=== PATIENT | male | born 1960 | race Caucasian/White ===

== ENCOUNTER 2023-10-22 08:32 | Emergency (ER) | payer OTHER ==
[2023-10-22 09:01] LABS: Absolute Eosinophils 0.1 K/uL (0-0.5); Absolute Lymphocytes (CBC) 1.6 K/uL (0.7-4.9); Absolute Monocytes 0.8 K/uL (0.1-1.3); Absolute Neutrophil 6.9 K/uL (1.8-8.0); Basophils % 0.3 % (0-1.3); Eosinophils % 0.9 % (0-4.4); Hematocrit 43.8 % (39.6-49.0); Hemoglobin 14.4 g/dL (13.6-17.9); MCH 29.3 pg (27.0-35.0); MCV 88.8 fL (80-100); MPV 9.3 fL (7.6-11.3); Monocytes % 8.4 % (3.3-12.3); Neutrophils % 73.4 % (41.7-73.7); Platelets 182 thou/uL (152-406); RBC Red Blood Cell Count 4.93 M/uL (4.33-5.43); Red Cell Distribution Width 14.5 % (12.1-15.2)
[2023-10-22 09:05] LABS: PT Prothrombin Time 37.9 SECONDS (9.5-12.5); Protime INR 3.58
--- NOTE | 2023-10-22 09:08 | RAD REPORT ---
EXAM DESCRIPTION: RAD - Chest Single View - 10/22/2023 9:00 am CLINICAL HISTORY: syncope Chest pain. COMPARISON: CHEST SINGLE VIEW dated 02/05/2008; CHEST SINGLE VIEW dated 01/05/2008; CHEST PA AND LAT 2 V IEW dated 03/19/2006 FINDINGS: Portable technique limits examination quality. The lungs are grossly clear. The heart is normal in size. No displaced fractures.Sternotomy wires. IMPRESSION: No acute intrathoracic process suspected.
[2023-10-22 09:17] LABS: Albumin 3.7 g/dL (3.4-5.0); Anion Gap 8.2 mEq/L (5.0-15.0); Bilirubin Direct 0.2 mg/dL (0-0.2); Bilirubin Indirect, Calculated 0.2 mg/dL (0.2-0.8); Bilirubin Total 0.4 mg/dL (0.2-1.0); Globulin 3.6 g/dL (2.3-3.5); Potassium 4.2 mEq/L (3.5-5.1); Protein, Total 7.3 g/dL (6.4-8.2); Troponin High Sensitivity 8.1 pg/mL (<58.9)
--- NOTE | 2023-10-22 09:42 | RAD REPORT ---
EXAM DESCRIPTION: CT - Head Brain Wo Cont - 10/22/2023 9:24 am CLINICAL HISTORY: SYNCOPE Headache, drowsiness, syncope COMPARISON: CT-STROKE BRAIN W/O CONTRAST dated 11/21/2014 TECHNIQUE: All CT scans are performed using dose optimization technique as appropriate and may inclu de automated exposure control or mA/KV adjustment according to patient size. FINDINGS: No intracranial hemorrhage, hydrocephalus or extra-axial fluid collection.No areas of brai n edema or evidence of midline shift. The paranasal sinuses and mastoids are clear. The calvarium is intact. IMPRESSION: No acute intracranial abnormality.
--- NOTE | 2023-10-22 09:56 | ER ---
Nurse's Notes [facility] Name: Tee Michael Age: 63 yrs Sex: Male : 1960 Arrival Date: 10/22/2023 Time: 08:32 Bed 17 Private MD: Diagnosis: Near syncope Presentation: 10/21 08:52 Chief complaint: EMS states: pt wasat work , was walking and got light headed, dizzy, iw had to sit himself down, symptoms have resolved, hx of valve replacement and htn. Coronavirus screen: At this time, the client does not indicate any symptoms associated with coronavirus-19. Ebola Screen: Patient negative for fever greater than or equal to 101.5 degrees Fahrenheit, and additional compatible Ebola Virus Disease symptoms Patient denies exposure to infectious person. Patient denies travel to an Ebola-affected area in the 21 days before illness onset. No symptoms or risks identified at this time. Initial Sepsis Screen: Does the patient meet any 2 criteria? No. Patient's initial sepsis screen is negative. Does the patient have a suspected source of infection? No. Patient's initial sepsis screen is negative. Risk Assessment: Do you want to hurt yourself or someone else? Patient reports no desire to harm self or others. Onset of symptoms was October 22, 2023. 08:52 Acuity: DAT 3 iw 08:52 Method Of Arrival: EMS: [facility] iw Historical: - Allergies: 08:55 NKDA; iw - Home Meds: 08:57 atorvastatin 10 mg Oral tab 1 tab once daily [Active]; Coumadin 10 mg Oral tab 1 tab iw once daily [Active]; dipyridamole 50 mg Oral tab 1 tab 3 times per day [Active]; metoprolol succinate oral [Active]; aspirin 81 mg Oral tablet, delayed release (enteric coated) daily [Active]; - PMHx: 08:55 Artificial heart valve; hemorrhoids; Hypertensive disorder; iw Screenin:02 [facility] ED Fall Risk Assessment (Adult) Score/Fall Risk Level 0 - 2 = Low Risk. Abuse iw screen: Denies threats or abuse. Denies injuries from another. Nutritional screening: No deficits noted. Tuberculosis screening: No symptoms or risk factors identified. Assessment: 09:01 General: Appears in no apparent distress. Behavior is calm, cooperative. Pain: Denies iw pain. Neuro: Level of Consciousness is awake, alert, obeys commands, Oriented to person, place, time, situation, Moves all extremities. Full function Gait is. Neuro: Reports dizziness, resolved. Cardiovascular: Patient's skin is warm and dry. Respiratory: Respiratory effort is even, unlabored, Respiratory pattern is. GI: Abdomen is non-distended. Derm: Skin is intact, is healthy with good turgor. Musculoskeletal: Range of motion: intact in all extremities. 09:46 Reassessment: Patient appears in no apparent distress at this time. Patient and/or iw family updated on plan of care and expected duration. Pain level reassessed. Patient is alert, oriented x 3, equal unlabored respirations, skin warm/dry/pink. Vital Signs: 08:52 BP 134 / 85; Pulse 72; Resp 16; Temp 98.2; Pulse Ox 98% on R/A; iw 08:56 BP 143 / 83 Supine; Pulse 66; Resp 19; Pulse Ox 98% on R/A; bc6 08:56 BP 134 / 85 Sitting; Pulse 67; Resp 20; Pulse Ox 98% on R/A; bc6 08:56 BP 120 / 85 Standing; Pulse 68; Resp 17; Pulse Ox 99% on R/A; bc6 ED Course: 08:34 Patient arrived in ED. iw 08:39 Sheila Aguilar MD is Attending Physician. sp3 08:50 Basic Metabolic Panel Sent. bc6 08:50 CBC with Diff Sent. bc6 08:50 Hepatic Function Sent. bc6 08:50 Magnesium Sent. bc6 08:50 Protime (+inr) Sent. bc6 08:50 Troponin High Sensitivity Sent. bc6 08:50 Initial lab(s) drawn, by me, sent to lab. Maintain EMS IV. Dressing intact. Good blood bc6 return noted. Site clean \T\ dry. IV Flushed left antecubital with 5 ml normal saline. 08:52 Abril Crabtree, RN is Primary Nurse. iw 08:55 Triage completed. iw 08:55 Arm band placed on. iw 09:02 Chest Single View XRAY In Process Unspecified. EDMS 09:02 Patient has correct armband on for positive identification. Provided Education on: iw diagnostics, wait time . Client placed on continuous cardiac and pulse oximetry monitoring. NIBP monitoring applied. youth nutritional monitor on. : CT Head Brain wo Cont In Process Unspecified. EDMS Administered Medications: No medications were administered Medication: : VIS not applicable for this client. iw Outcome: Discharge ordered by MD. [email or web address] 10:17 Patient left the ED. iw Signatures: Dispatcher [employer] EDAbril Faulkner, KWADWO RN Sheila Prasad MD MD sp3 Ivonne Moore 6
--- NOTE | 2023-10-22 09:56 | EDPHYS ---
Physician Documentation [facility] Name: Tee Michael Age: 63 yrs Sex: Male : 1960 Arrival Date: 10/22/2023 Time: 08:32 Bed 17 Private MD: ED Physician Sheila Aguilar HPI: 10/21 08:52 This 63 yrs old Male presents to ER via Unassigned with complaints of near syncope. sp3 08:52 63-year-old male with history of [facility] valve replacement of the aortic valve in sp3 1988 currently on Coumadin, hypertension, hyperlipidemia who now presents to the ED with chief complaint near syncope that started this morning after he had a coughing episode. Patient states that after he had this episode in the car he "almost passed out" and while at work he has had several episodes of feeling very lightheaded and almost "blacking out". He denies any vertigo, associated symptoms including neck pain, chest pain, shortness of breath, back pain, abdominal pain, vomiting, diarrhea, skin rash, bleeding, pain of any type, fever, or any other signs or symptoms on ROS at this time. Currently feels "completely back to normal".. Historical: - Allergies: 08:55 NKDA; iw - Home Meds: 08:57 atorvastatin 10 mg Oral tab 1 tab once daily [Active]; Coumadin 10 mg Oral tab 1 tab iw once daily [Active]; dipyridamole 50 mg Oral tab 1 tab 3 times per day [Active]; metoprolol succinate oral [Active]; aspirin 81 mg Oral tablet, delayed release (enteric coated) daily [Active]; - PMHx: 08:55 Artificial heart valve; hemorrhoids; Hypertensive disorder; iw ROS: 08:53 Constitutional: Negative for fever, chills, and weight loss, Eyes: Negative for injury, sp3 pain, redness, and discharge, ENT: Negative for injury, pain, and discharge, Neck: Negative for injury, pain, and swelling, Respiratory: Negative for shortness of breath, cough, wheezing, and pleuritic chest pain, Abdomen/GI: Negative for abdominal pain, nausea, vomiting, diarrhea, and constipation, Back: Negative for injury and pain, MS/Extremity: Negative for injury and deformity, Skin: Negative for injury, rash, and discoloration, Psych: Negative for depression, anxiety, suicide ideation, homicidal ideation, and hallucinations, Allergy/Immunology: Negative for hives, rash, and allergies, Endocrine: Negative for neck swelling, polydipsia, polyuria, polyphagia, and marked weight changes, Hematologic/Lymphatic: Negative for swollen nodes, abnormal bleeding, and unusual bruising, 08:53 All other systems are negative, Exam: 08:53 Constitutional: This is a well developed, well nourished patient who is awake, alert, sp3 and in no acute distress. Head/Face: Normocephalic, atraumatic. Eyes: Pupils equal round and reactive to light, extra-ocular motions intact. Lids and lashes normal. Conjunctiva and sclera are non-icteric and not injected. Cornea within normal limits. Periorbital areas with no swelling, redness, or edema. ENT: Nares patent. No nasal discharge, no septal abnormalities noted. External auditory canals are clear. Oropharynx with no redness, swelling, or masses, exudates, or evidence of obstruction, uvula midline. Mucous membranes moist. Neck: Trachea midline, no thyromegaly or masses palpated, and no cervical lymphadenopathy. Supple, full range of motion without nuchal rigidity, or vertebral point tenderness. No Meningismus. Chest/axilla: Normal chest wall appearance and motion. Nontender with no deformity. No lesions are appreciated. Cardiovascular: Regular rate and rhythm with a normal S1 and S2. No gallops, murmurs, or rubs. Normal PMI, no JVD. No pulse deficits. Respiratory: Lungs have equal breath sounds bilaterally, clear to auscultation and percussion. No rales, rhonchi or wheezes noted. No increased work of breathing, no retractions or nasal flaring. Abdomen/GI: Soft, non-tender, with normal bowel sounds. No distension or tympany. No guarding or rebound. No evidence of tenderness throughout. Back: No spinal tenderness. No costovertebral tenderness. Full range of motion. Skin: Warm, dry with normal turgor. Normal color with no rashes, no lesions, and no evidence of cellulitis. MS/ Extremity: Pulses equal, no cyanosis. Neurovascular intact. Full, normal range of motion. Neuro: Awake and alert, GCS 15, oriented to person, place, time, and situation. Cranial nerves II-XII grossly intact. Motor strength 5/5 in all extremities. Sensory grossly intact. Cerebellar exam normal. Normal gait. Psych: Awake, alert, with orientation to person, place and time. Behavior, mood, and affect are within normal limits. 08:53 ECG was reviewed by the Attending Physician. EKG demonstrates normal sinus rhythm at 68 bpm with QTc of 478, right bundle branch block and nonspecific ST's ST changes without evidence of acute ischemia. Vital Signs: 08:52 BP 134 / 85; Pulse 72; Resp 16; Temp 98.2; Pulse Ox 98% on R/A; iw 08:56 BP 143 / 83 Supine; Pulse 66; Resp 19; Pulse Ox 98% on R/A; bc6 08:56 BP 134 / 85 Sitting; Pulse 67; Resp 20; Pulse Ox 98% on R/A; bc6 08:56 BP 120 / 85 Standing; Pulse 68; Resp 17; Pulse Ox 99% on R/A; bc6 MDM: 08:40 Patient medically screened. sp3 08:54 Data reviewed: vital signs, nurses notes, EMS record, lab test result(s), EKG, sp3 radiologic studies. ED course: 63-year-old male with near syncope now resolved. Differential diagnosis includes fatigue, vagal syndrome, electrolyte abnormality, and to a lesser degree ACS spectrum, TIA/CVA spectrum, among others. Workup will include CT scan of the head, chest x-ray, EKG, laboratory values and general supportive care. Orthostatics also pending. If workup is negative and patient continues to feel normal, we will safely discharge patient home to PCP follow-up.. 09:55 ED course: Mild blood pressure drop on orthostatics. Otherwise complete normal workup. 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 We will safely discharge home at this time.. 10/21 08:39 Order name: Basic Metabolic Panel; Complete Time: : sp3 10/21 08:39 Order name: CBC with Diff; Complete Time: : sp3 10/21 08:39 Order name: Hepatic Function; Complete Time: 09: sp3 10/21 08:39 Order name: Magnesium; Complete Time: 09: sp3 10/21 08:39 Order name: Protime (+inr); Complete Time: : sp3 10/21 08:39 Order name: Troponin High Sensitivity; Complete Time: 09:23 sp3 10/21 08:39 Order name: CT Head Brain wo Cont; Complete Time: 09:52 sp3 10/21 08:39 Order name: Chest Single View XRAY; Complete Time: 09:23 sp3 10/21 08:39 Order name: EKG; Complete Time: 08:40 sp3 10/21 08:39 Order name: Cardiac monitoring; Complete Time: 08:50 sp3 10/21 08:39 Order name: EKG - Nurse/Tech; Complete Time: 08:50 sp3 10/21 08:39 Order name: IV Saline Lock; Complete Time: 08:50 sp3 10/21 08:39 Order name: Labs collected and sent; Complete Time: 08:50 sp3 10/21 08:39 Order name: NPO; Complete Time: 08:50 sp3 10/21 08:39 Order name: O2 Per Protocol; Complete Time: 08:50 sp3 10/21 08:39 Order name: O2 Sat Monitoring; Complete Time: 08:50 sp3 10/21 08:39 Order name: Orthostatics; Complete Time: 08:50 sp3 Administered Medications: No medications were administered Disposition Summary: 10/22/23 09:55 Discharge Ordered Notes: Location: Home sp3 Condition: Stable sp3 Diagnosis - Near syncope sp3 Followup: sp3 - With: Private Physician - When: Upon discharge from the Emergency Department - Reason: Continuance of care Discharge Instructions: - Discharge Summary Sheet sp3 - Near-Syncope sp3 Forms: - Work release form em1 - Medication Reconciliation Form sp3 - Antibiotic Education sp3 - Prescription Opioid Use sp3 - Patient Portal Instructions sp3 - Leadership Thank You Letter sp3 Signatures: Dispatcher [employer] Abril Leblanc RN RN iw Patel, Setul, MD MD sp3 Corrections: (The following items were deleted from the chart) 08:57 08:52 63-year-old male with no significant past medical history now presents to the ED sp3 with chief complaint near syncope that started this morning after he had a coughing episode. Patient states that after he had this episode in the car he "almost passed out" and while at work he has had several episodes of feeling very lightheaded and almost "blacking out". He denies any vertigo, associated symptoms including neck pain, chest pain, shortness of breath, back pain, abdominal pain, vomiting, diarrhea, skin rash, bleeding, pain of any type, fever, or any other signs or symptoms on ROS at this time. Currently feels "completely back to normal".. sp3
[2023-10-22 10:28] VITALS: BP 120/85; TEMP 98.2; O2SAT 99
--- NOTE | 2023-10-26 13:12 | EKG ---
Test Date: 2023-10-22 Test Time: 08:41:10 Enforcement Safety Officer: HYUN MEASUREMENT RESULTS: Intervals: Rate: 68 MA: 190 QRSD: 152 QT: 450 QTc: 478 [place]: P: 61 MA: 190 QRS: -53 T: 26 INTERPRETIVE STATEMENTS: Normal sinus rhythm Right bundle branch block Left anterior fascicular block Bifascicular block Voltage criteria for left ventricular hypertrophy Abnormal ECG Compared to ECG 11/15/2015 15:42:23 Right bundle-branch block now present Left anterior fascicular block now present Bifascicular block now present Sinus bradycardia no longer present Left-axis deviation no longer present Electronically Signed On 10-26-23 13:00:24 CDT by Jose Ferrer
== END 2023-10-22 10:17 | disposition home or self-care (01) ==
LOC: ER 08:32
DX: R55 Syncope and collapse (principal); I10 Essential (primary) hypertension; Z95.2 Presence of prosthetic heart valve; Z79.01 Long term (current) use of anticoagulants; Z79.82 Long term (current) use of aspirin
CPT/HCPCS: 36415; 70450; 71045; 80048; 80076; 83735; 84484; 85025; 85610; 93005